=== PATIENT | female | born 1985 | race African-American/Black ===

== ENCOUNTER 2016-11-05 12:42 | Emergency (ER) | payer MEDICAID, OTHER ==
[2016-11-05 13:00] VITALS: TEMP 98.5; BMI 41.0
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
[2016-11-05 13:58] VITALS: BP 127/85; PULSE 70
[2016-11-05] MEDS ORDERED: KETOROLAC TROMETHAMINE 10 MG TAB PO ONE (14:00)
[2016-11-05] MEDS ORDERED: CYCLOBENZAPRINE 10 MG TAB PO ONE (14:00)
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
== END 2016-11-05 14:27 | disposition home or self-care (01) ==
LOC: ED 12:42 → EDMC 14:27
DX: S39.012A Strain of muscle, fascia and tendon of lower back, initial encounter (principal); M25.561 Pain in right knee; V49.40XA Driver injured in collision with unspecified motor vehicles in traffic accident, initial encounter; F17.200 Nicotine dependence, unspecified, uncomplicated; F12.10 Cannabis abuse, uncomplicated
CPT/HCPCS: 72110; 73564; 99283; J3490